=== PATIENT | male | born 1980 | race Caucasian/White ===

== ENCOUNTER 2017-11-05 18:57 | Emergency (ER) | payer BC, OTHER ==
[~2017-11-05] VITALS: Ht 185.4 cm; Wt 87.8 kg
[~2017-11-05 18:57] MED LIST: CARI350T28 PO; HYDR-3983 PO
[2017-11-05 19:07] VITALS: Ht 185.4 cm; Wt 87.8 kg
[2017-11-05] MEDS ORDERED: IBUPROFEN 600 MG TAB PO STA (19:23)
[2017-11-05] MEDS ORDERED: DOXYCYCLINE HYCLATE 100 MG CAP PO ONE (19:30)
[2017-11-05] MEDS ORDERED: DOXY100C76 PO (19:35)
--- NOTE | 2017-11-05 19:42 | EMERGENCY ROOM VISIT NOTE ---
History Report prepared by Chinmay: Kev Fairchild Under the Supervision of: Dr. Kary Curran M.D. First contact with patient: 19:13 Chief Complaint: BITE Stated Complaint: BIT BY SOMETHING,ARM SWELLING History of Present Illness The patient is a 37 year old male who presents to the Emergency Room with complaints of constant left extremity pain that began two days ago. He rates his pain as a 10/10 in severity. The patient states that he was cutting down pine trees two days ago when he felt a "sting in my left arm and left leg". He reports he believes he was stung by a bee. The patient states that since the incident, his left arm and leg have become swollen and erythematous. He report that the area of erythema has been spreading. He reports that he was able to walk this morning, but was unable to after work today due to the pain. The patient states he took Benadryl for his symptoms two days ago. He denies any fever. Source of History: patient Onset: two days ago Position: arm (left), leg (left) Symptom Intensity: 10/10 Timing: constant Modifying Factors (Relieving): other (Benadryl) Associated Symptoms: No fevers Note: Associated symptoms: Left arm and leg erythema and swelling Review of Systems See HPI for pertinent positives & negatives. A total of 10 systems reviewed and were otherwise negative. Past Medical & Surgical Medical Problems: (1) Muscle spasm Family History Patient reports no known family medical history. Social History Smoking Status: Current Every Day Smoker Alcohol Use: none Marital Status: single Housing Status: lives alone Occupation Status: employed Current/Historical Medications Scheduled Doxycycline Monohydrate (Monodox), 100 MG PO BID Scheduled PRN Carisoprodol (Soma), 350 MG PO HS PRN for Sleep Hydrocodone/Acetaminophen 7.5MG/325MG (Douglas 7.5MG/325MG), 1 TAB PO DAILY PRN for Pain Allergies Coded Allergies: Aspirin (Unverified Allergy, Intermediate, breaks out in hives, 09/01/15) Penicillins (Unverified Allergy, Intermediate, breaks out in hives, ) Physical Exam Vital Signs Date Time Temp Pulse Resp B/P (MAP) Pulse Ox O2 Delivery O2 Flow Rate FiO2 11/05/17 19:54 36.9 80 18 142/84 96 11/05/17 19:07 36.9 80 18 142/84 96 Room Air Physical Exam Vital signs reviewed. General: Well-appearing 37 year old male, in no significant distress. Musculoskeletal: Atraumatic, no peripheral edema. Neurologic: Patient awake alert and oriented x 3. Skin: Warm, dry. Multiple superficial abrasions to the left upper extremity from the elbow distally. There is a large area of erythema and warmth to the medial forearm. There are multiple abrasions to the left lower extremity with a small 0.5 cm laceration to knee with surrounding erythema of 5 cm. No fluctuance or drainage. Several scattered abrasions otherwise. Medical Decision & Procedures Medications Administered Medications (Trade) Dose Ordered Sig/Noelle Route Start Time Stop Time Status Last Admin Dose Admin Doxycycline Hyclate (Vibramycin Cap) 100 mg ONE ONCE PO 11/05/17 19:30 11/05/17 19:31 DC 11/05/17 19:35 100 MG Ibuprofen (Motrin Tab) 600 mg NOW STAT PO 11/05/17 19:23 11/05/17 19:26 DC 11/05/17 19:35 600 MG ED Course 1920: Past medical records reviewed. The patient was evaluated in room B05. A complete history and physical examination was performed. 1928: I discussed findings with the patient. He verbalized agreement of the treatment plan. The patient was discharged home. Medical Decision The patient is a 37 year old male who presents to the Emergency Room with complaints of constant left extremity pain that began two days ago. Differentials include cellulitis, abscess, MRSA infection, DVT, necrotizing fasciitis, dermatitis, drug eruption, as well as others were entertained. This patient was evaluated and appeared to be in no significant distress. Patient's wounds are consistent with abrasions and secondary cellulitis. I do not suspect an insect bite or sting. There is significant cellulitis noted to the left upper extremity distally. It does not appear to cross the elbow. The wound on the left lower extremity is slightly more ulcerated with a smaller area of cellulitic change. Patient was given doxycycline to hopefully cover MRSA. Patient states his tetanus status is up-to-date. He was advised to use Tylenol or ibuprofen as needed for pain or fever. He will seek reevaluation if symptoms worsen or if fever develops. The area was circumscribed with a marker. He was advised to watch for redness outside of the area of demarcation. He will return to the ED for worsening of symptoms or any medical concerns. Medication Reconcilliation Current Medication List: was personally reviewed by me Blood Pressure Screening Patient's blood pressure: Elevated blood pressure Blood pressure disposition: Elevated BP felt to be situational Impression Primary Impression: Cellulitis of left upper extremity Additional Impression: Cellulitis of left lower limb Scribe Attestation The scribe's documentation has been prepared under my direction and personally reviewed by me in its entirety. I confirm that the note above accurately reflects all work, treatment, procedures, and medical decision making performed by me. Departure Information Dispostion Home / Self-Care Prescriptions Doxycycline Monohydrate (Monodox) 100 Mg Cap 100 MG PO BID for 7 Days, #14 CAP Prov: Kary Curran M.D. 11/05/17 Referrals No Doctor, Assigned (PCP) Forms HOME CARE DOCUMENTATION FORM, IMPORTANT VISIT INFORMATION Patient Instructions Cellulitis Dc, My [facility] Additional Instructions Diagnosis: Cellulitis Doxycycline 100 mg twice daily for 7 days. Wear sunscreen if and when exposed to the sun as you will be at a high risk for sunburn on this medication. Ibuprofen 600 mg every 6 hours as needed for pain or fever. Tylenol 650 mg every 6 hours as needed for pain or fever. Wash wounds with warm water and soap 1-2 times daily. Keep covered while working. Return for fever over 101 or redness spreading past the demarcated line. Follow-up with your primary care physician or return to the emergency department for worsening of symptoms or any medical concerns. Problem Qualifiers
[2017-11-05 19:54] VITALS: BP 142/84; PULSE 80; TEMP 36.9; O2SAT 96
== END 2017-11-05 19:55 | disposition home or self-care (01) ==
LOC: C.EDB 18:58
DX: L03.114 Cellulitis of left upper limb (principal); L03.116 Cellulitis of left lower limb; S40.812A Abrasion of left upper arm, initial encounter; S80.812A Abrasion, left lower leg, initial encounter; F17.210 Nicotine dependence, cigarettes, uncomplicated; Z88.2 Allergy status to sulfonamides; Z88.0 Allergy status to penicillin; X58.XXXA Exposure to other specified factors, initial encounter; Y93.89 Activity, other specified